=== PATIENT | female | born 1990 | race Caucasian/White ===

== ENCOUNTER 2016-11-28 11:48 | Inpatient (IN) ==
[2016-11-28] MEDS ORDERED: ZOFRAN IV PRN (20:55)
[2016-11-28] MEDS ORDERED: BRETHINE SUBQ PRN (20:55)
[2016-11-28] MEDS ORDERED: KEFZOL 1 GM/D5W 1 GM/50 ML IVPB IV PRN (20:55)
[2016-11-28] MEDS ORDERED: PEPCID IV PRN (20:55)
[2016-11-28] MEDS ORDERED: AMBIEN PO PRN (20:55)
[2016-11-28] MEDS ORDERED: STADOL IV PRN ×2 (20:55)
[2016-11-28] MEDS ORDERED: TYLENOL PO PRN (20:55)
[2016-11-28] MEDS ORDERED: PEPCID PO PRN (20:55)
[2016-11-28] MEDS ORDERED: LR 1,000 ML IV ONE (20:55)
[2016-11-28 22:04] LABS: MANUAL DIFF NEEDED? NO
[2016-11-28 22:11] LABS: BASO% 0.5 % (0.0-0.8); EOS# 0.48 X1000 (0.0-0.7); EOS% 4.4 % (0.0-10.0); HEMATOCRIT 35.9 % (37.0-47.0); HEMOGLOBIN 12.3 g/dL (12.0-16.0); IMM GRAN# 0.05 X1000 (0.0-0.04); IMM GRAN% 0.5 % (0.0-0.5); LYMPH# 2.24 X1000 (1.2-3.4); LYMPH% 20.6 % (20.5-51.1); MCH 31.6 PG (27-31); MCHC 34.3 g/dL (33-37); MCV 92.3 FL (81-99); MONO# 0.69 X1000 (0.11-0.59); MONO% 6.3 % (1.7-9.3); MPV 11.8 FL (7.4-10.4); NEUT% 67.7 % (42.2-75.2); PLT 203 X1000 (130-400); RBC 3.89 XMIL (4.2-5.4)
[2016-11-28 22:20] LABS: UR AMPHETAMINES QUAL NONE DETECTED (NONE DETECT); UR BARBITUATES QUAL NONE DETECTED (NONE DETECT); UR BENZODIAZEPIN QUAL NONE DETECTED (NONE DETECT); UR CANNABINOIDS QUAL NONE DETECTED (NONE DETECT); UR COCAINE QUAL NONE DETECTED (NONE DETECT); UR MDMA QUAL NONE DETECTED (NONE DETECT); UR METHADONE QUAL NONE DETECTED (NONE DETECT); UR METHAMPHETAMINE QUAL NONE DETECTED (NONE DETECT); UR OPIATES QUAL NONE DETECTED (NONE DETECT); UR OXYCODONE QUAL NONE DETECTED (NONE DETECT); UR PCP QUAL NONE DETECTED (NONE DETECT); UR TCA QUAL NONE DETECTED (NONE DETECT)
[2016-11-28] MEDS ORDERED: CYTOTEC PO ONE (23:00)
[2016-11-29] MEDS: CYTOTEC PO SCH ×2 (03:41→06:21)
[2016-11-29] MEDS: STADOL IV PRN ×3 (04:41→07:28)
[2016-11-29] MEDS ORDERED: PITOCIN 30 UNITS/LR 30 UNITS/500 ML IV.SOLN IV SCH (07:00)
[2016-11-29] MEDS: NS 1,000 ML IV SCH ×2 (08:22→19:55)
[2016-11-29] MEDS ORDERED: FENTANYL-BUPIV-NS 2 MCG-0.1% 200 ML EPIDURAL PRN (08:39)
[2016-11-29] MEDS ORDERED: NAROPIN 0.2% ONE (13:16)
[2016-11-29] MEDS ORDERED: BICITRA ONE (14:01)
[2016-11-29] MEDS ORDERED: XYLOCAINE-MPF 2% ONE (14:05)
[2016-11-29] MEDS ORDERED: DURAMORPH ONE (14:06)
[2016-11-29] MEDS ORDERED: SODIUM CHLORIDE 0.9% 10 ML ONE (14:08)
[2016-11-29] MEDS ORDERED: PEPCID IV ONE (14:30)
[2016-11-29] MEDS ORDERED: SODIUM CHLORIDE 0.9% INJ ONE (14:30)
[2016-11-29] MEDS ORDERED: BICITRA PO ONE (14:30)
[2016-11-29] MEDS ORDERED: PITOCIN 20 UNITS/LR 20 UNITS/1,000 ML IV.SOLN ONE (14:40)
[2016-11-29] MEDS ORDERED: ROBINUL ONE (14:44)
[2016-11-29] MEDS ORDERED: PITOCIN 20 UNITS/LR 20 UNITS/1,000 ML IV.SOLN IV ONE (14:45)
[2016-11-29] MEDS ORDERED: M-M-R II VACCINE SUBQ ONE (14:45)
[2016-11-29] MEDS ORDERED: CYTOTEC PO PRN (14:45)
[2016-11-29] MEDS ORDERED: DEMEROL IM PRN (14:45)
[2016-11-29] MEDS ORDERED: DEMEROL PO PRN ×2 (14:45)
[2016-11-29] MEDS ORDERED: PHENERGAN IM PRN (14:45)
[2016-11-29] MEDS ORDERED: DULCOLAX PR PRN (14:45)
[2016-11-29] MEDS ORDERED: MYLICON PO PRN (14:45)
[2016-11-29] MEDS ORDERED: AMBIEN PO PRN (14:45)
[2016-11-29] MEDS ORDERED: PITOCIN IM PRN (14:45)
[2016-11-29] MEDS ORDERED: HYDROXYZINE IM PRN (14:45)
[2016-11-29] MEDS ORDERED: BOOSTRIX VACCINE IM ONE (14:45)
[2016-11-29] MEDS ORDERED: HYDROXYZINE PO PRN (14:45)
[2016-11-29] MEDS ORDERED: NARCAN INJ PRN (17:55)
[2016-11-29] MEDS ORDERED: ZOFRAN ODT PO PRN (17:55)
[2016-11-29] MEDS ORDERED: BENADRYL IV PRN (17:55)
[2016-11-29] MEDS ORDERED: ZOFRAN IV PRN ×2 (17:55)
[2016-11-29] MEDS ORDERED: TYLENOL PO PRN (17:56)
[2016-11-29] MEDS ORDERED: MORPHINE IV PRN (17:57)
--- NOTE | 2016-11-29 18:35 | OPERATIVE NOTE ---
PROCEDURE DATE: PREOPERATIVE DIAGNOSES: 1. Intrauterine at 38 weeks. 2. Type 1B diabetic. 3. Nonreassuring assessment. POSTOPERATIVE DIAGNOSES: 1. Intrauterine at 38 weeks. 2. Type 1B diabetic. 3. Nonreassuring assessment. PROCEDURE: Primary low segment transverse section. SURGEON: Dr. Maura Duckworth. ESTIMATED BLOOD LOSS: 400 mL. COMPLICATIONS: None. COUNTS: Correct x2. FINDINGS: Viable female , weighing 6 pounds 1 ounce with Apgars of 2 and 9, loose nuchal x1, tight cord around right wrist x1. INDICATION FOR PROCEDURE: Patient is a 26-year-old G1 with intrauterine at 38 weeks. Patient was admitted for induction of labor secondary to pregestational diabetes. The patient noted to have recurrent variable decelerations despite conservative measures so the decision was made to proceed to the operating room for primary abdominal delivery. PROCEDURE IN DETAIL: After proper informed consent was obtained, patient was taken to the operating room and placed in dorsal supine position with adequate epidural anesthesia. Abdomen was prepped and draped in the normal sterile fashion for abdominal surgery. After proper time-out was performed a low transverse incision was made on the skin using a scalpel. This was carried down to the underlying fascia which was scored in the midline. Fascial incision was stretched using the booster operator's hand. Muscles bluntly in the midline. Peritoneum was entered bluntly and stretched using the booster operator's hand. Bladder blade was placed to protect the bladder. A low transverse incision was made on the uterus and stretched using the booster operator's hand. was delivered in the vertex presentation. Cord was doubly clamped and cut, and infant was handed off to the awaiting pediatric staff. Placenta was delivered via fundal massage. Uterus was exteriorized and cleared free of all clot and debris. Hysterotomy was reapproximated using #1 chromic in a running, locking fashion. The posterior cul-de-sac was cleared free of all clot and debris. The uterus was returned to the abdomen. The peritoneum was then reapproximated using 3-0 chromic in a running, continuous fashion. The muscles were noted to be hemostatic. Fascia was reapproximated using #1 Vicryl in a running, continuous fashion. Subcutaneous tissue was made hemostatic using Bovie electrocautery. Subcutaneous tissue was reapproximated using 3-0 chromic in a running, continuous fashion. Skin was reapproximated using 4-0 Monocryl in a subcuticular fashion. Patient tolerated the procedure well. Transferred to recovery in stable condition. cc: MD Sonido Stone MD
[2016-11-29] MEDS: TORADOL IV PRN (19:34)
[2016-11-29] MEDS: MYLICON PO SCH (19:54)
[2016-11-29] MEDS: PITOCIN 10 UNITS/LR 10 UNIT/1,000 ML IV.SOLN IV SCH (19:55)
[2016-11-30] MEDS: PITOCIN 10 UNITS/LR 10 UNIT/1,000 ML IV.SOLN IV SCH (01:15)
[2016-11-30] MEDS: PERICOLACE PO SCH ×2 (03:22→21:06)
[2016-11-30] MEDS: HUMULIN R (PARKWAY) SUBQ SCH ×5 (03:22→21:08)
[2016-11-30] MEDS: NS 1,000 ML IV SCH ×2 (03:22→17:54)
[2016-11-30] MEDS: TORADOL IV PRN (03:27)
[2016-11-30 05:54] LABS: HEMATOCRIT 33.4 % (37.0-47.0); HEMOGLOBIN 11.3 g/dL (12.0-16.0); MCHC 33.8 g/dL (33-37); MCV 94.6 FL (81-99); MPV 12.2 FL (7.4-10.4); RBC 3.53 XMIL (4.2-5.4)
[2016-11-30] MEDS: MYLICON PO SCH ×5 (07:01→21:06)
[2016-11-30] MEDS: MOTRIN PO PRN ×2 (09:31→18:27)
[2016-11-30] MEDS: NORCO-5 PO PRN ×2 (09:31→13:59)
[2016-11-30] MEDS ORDERED: PATIENT'S OWN MED SUBQ SCH ×3 (11:00→17:00)
[2016-11-30] MEDS ORDERED: LR 1,000 ML IV SCH (14:46)
[2016-11-30] MEDS: NORCO-10 PO PRN ×2 (18:26→22:57)
[2016-12-01] MEDS: MOTRIN PO PRN ×2 (04:09→14:17)
[2016-12-01] MEDS: NORCO-10 PO PRN ×2 (04:09→14:17)
[2016-12-01 07:33] VITALS: BP 123/67
[2016-12-01] MEDS ORDERED: PATIENT'S OWN MED SUBQ SCH ×2 (08:00)
[2016-12-01] MEDS: MYLICON PO SCH ×2 (10:46→14:24)
[2016-12-01] MEDS: HUMULIN R (PARKWAY) SUBQ SCH (10:47)
--- NOTE | 2016-12-02 05:18 | DISCHARGE SUMMARY ---
ADMISSION DATE: 11/28/2016 DISCHARGE DATE: 12/01/2016 ADMITTING DIAGNOSES: 1. A 38-week . 2. Type 1 diabetic. PRINCIPAL DIAGNOSIS: Nonreassuring heart rate tracing. PRINCIPAL PROCEDURE: Primary low-transverse section. SUMMARY: Becki Davidson is a 26-year-old, 1, para 0, at 38 weeks gestation. Her has been complicated by type 1 diabetes. She was brought in to the hospital on November 28 to begin induction of labor. However, on November 29, she began having signs of distress, and a primary was performed by Dr. Parker. She delivered a 6 pound 1 ounce female infant, with Apgars of 2 at 1 minute and 9 at 5 minutes. There was a nuchal cord, and the cord was wrapped around the right breast. Postoperatively, the patient has done well. She has remained afebrile, and her vital signs were stable. Her admission hemoglobin and hematocrit was 12.3/35.9, with discharge hemoglobin and hematocrit being 11.3/33.4. She has restarted her routine home insulin regimen, and has had excellent blood sugar control. Today, her cardiac and pulmonary examinations are normal. Incision is clean and dry. She is having scant vaginal bleeding. Ms. Davidson will be discharged today. She will follow up in the office in 1 week. Routine discharge instructions, activity limitations, and precautions were discussed. She will continue to adjust her insulin as needed. She is given prescriptions for Barron 10, #30, and Motrin for postoperative pain. cc: MD Sonido Barnard MD
== END 2016-12-01 15:05 | disposition home or self-care (01) ==
LOC: EDSTATUS 11:49 → P.LD 20:43
PROVIDERS: ADMIT Obstetrics & Gynecology; ATTEND Obstetrics & Gynecology